=== PATIENT | female | born 1995 ===

== ENCOUNTER 2024-04-09 11:09 | Emergency (ER) | payer SELFPAY ==
[2024-04-09 11:33] VITALS: BP 130/78; PULSE 75; RESP 16; TEMP 36.9; O2SAT 98; BMI 38.2
[2024-04-09 12:25] LABS: Influenza A - CEPHEID Flu A NEGATIVE (NEGATIVE); Influenza B - CEPHEID Flu B NEGATIVE (NEGATIVE); Respiratory Syncytial Virus Negative (Negative)
[2024-04-09 12:39] LABS: COVID-19 CEPHEID 4-PLEX PCR Negative (Negative)
[2024-04-09 12:52] LABS: Bacteria Urine Many (>30); Culture Indicated Urine Specimen Cultured; RBC Urine None Seen (0-5/HPF); Squamous Epithelial Cell Urine 0-1 /HPF (0-5/HPF); Urine Volume 10mL (spun); WBC Urine 5-10/HPF (0-5/HPF)
--- NOTE | 2024-04-09 15:45 | ED.URI ---
HPI - URI/Sore Throat <Monica Pierre PA-C - Last Filed: 04/09/24 16:51> General Chief Complaint: Upper Respiratory Symptoms Stated Complaint: Fever, chills Time Seen by Provider: 04/09/24 15:44 Source: patient Mode of arrival: Ambulatory History of Present Illness HPI Narrative: Ms. Dexter is a pleasant 28-year-old female with a past medical history of PCOS who presents to the emergency department for fever, chills, nausea, fatigue, body aches, sore throat x 6 days. Patient is visiting here from [place]. States that she has had decreased appetite but still is able to eat and drink daily without vomiting. No abdominal pain, dysuria, diarrhea. She occasionally feels palpitations and chest tightness but no wheezing. No lower extremity swelling or pain. She does not smoke. Admits to left lower tooth pain. She has not taken any medications prior to arrival. She can not take pills. Related Data Previous Rx's Medication Instructions Recorded amoxicillin 400 mg/5 mL oral 1,000 mg (12.5 mL) PO TID 5 days 04/09/24 suspension #187.5 mL Allergies Allergy/AdvReac Type Severity Reaction Status Date / Time No Known Drug Allergies Allergy Verified 04/09/24 11:33 Review of Systems <Monica Pierre PA-C - Last Filed: 04/09/24 16:51> Review of Systems ROS Unobtainable: All systems reviewed & are unremarkable except as noted in HPI and below Patient History <Monica Pierre PA-C - Last Filed: 04/09/24 16:51> Social History Smoking Status: Never smoker Smoking Status: Never smoker Exam <Monica Pierre PA-C - Last Filed: 04/09/24 16:51> Narrative Exam Narrative: GENERAL: 28 year old patient appears stated age. Well-developed patient, in no acute distress. HEAD: Atraumatic. Normocephalic. EYES: Extraocular motions intact. No scleral icterus. No injection or drainage. ENT: TMs clear bilaterally. Nose without bleeding, purulent drainage. Absence of 1 of her left lower teeth some tenderness to palpation of the gingiva. No abscess. Posterior oropharyngeal erythema and 2+ bilateral tonsillar hypertrophy. Airway patent. NECK: Trachea midline. Cervical ROM intact. CARDIOVASCULAR: Regular rate and rhythm. RESPIRATORY: ?Nonlabored respirations. ?Speaking in clear, full sentences. ?Clear to auscultation. Breath sounds equal bilaterally. No wheezes, rales, or rhonchi. ? GASTROINTESTINAL: Abdomen soft, non-tender, nondistended. EXTREMITIES: No edema or joint tenderness. BACK: Nontender without deformity or crepitance. No flank tenderness. NEURO: AOx3. ?Clear speech. ?Moves all 4 extremities appropriately. SKIN: No rash or erythema of visible areas Initial Vital Signs Initial Vital Signs: Vital Signs Temperature 98.4 F 04/09/24 11:33 Pulse Rate 75 04/09/24 11:33 Respiratory Rate 16 04/09/24 11:33 Blood Pressure 130/78 04/09/24 11:33 Pulse Oximetry 98 04/09/24 11:33 Oxygen Delivery Method Room Air 04/09/24 11:33 <Pamela Ulrich MD - Last Filed: 04/10/24 08:33> Initial Vital Signs Initial Vital Signs: Vital Signs Temperature 98.4 F 04/09/24 11:33 Pulse Rate 75 04/09/24 11:33 Respiratory Rate 16 04/09/24 11:33 Blood Pressure 130/78 04/09/24 11:33 Pulse Oximetry 98 04/09/24 11:33 Oxygen Delivery Method Room Air 04/09/24 11:33 Course <Monica Pierre PA-C - Last Filed: 04/09/24 16:51> Orders Ordered: Discontinued Medications Acetaminophen (Acetaminophen Susp 650 Mg/20.3 Ml Udc) 650 mg PO NOW ONE Stop: 04/09/24 15:54 Last Admin: 04/09/24 16:03 Dose: 650 mg Documented By: NOEMY Ibuprofen (Ibuprofen Susp 100 Mg/5 Ml Udc) 400 mg PO NOW ONE Stop: 04/09/24 15:54 Last Admin: 04/09/24 16:04 Dose: 400 mg Documented By: NOEMY Ondansetron HCl (Ondansetron 4 Mg/2 Ml Inj) 4 mg IV NOW PRN PRN Reason: Nausea And Vomiting Ondansetron HCl (Ondansetron 4 Mg Odt) 4 mg SL NOW PRN PRN Reason: Nausea And Vomiting Last Admin: 04/09/24 16:03 Dose: 4 mg Documented By: NOEMY Vital Signs Vital signs: Vital Signs - 8 hr 04/09/24 11:33 Temperature 98.4 F Pulse Rate 75 Respiratory Rate 16 Blood Pressure 130/78 Pulse Oximetry 98 Oxygen Delivery Method Room Air <Pamela Ulrich MD - Last Filed: 04/10/24 08:33> Orders Ordered: Discontinued Medications Acetaminophen (Acetaminophen Susp 650 Mg/20.3 Ml Udc) 650 mg PO NOW ONE Stop: 04/09/24 15:54 Last Admin: 04/09/24 16:03 Dose: 650 mg Documented By: NOEMY Ibuprofen (Ibuprofen Susp 100 Mg/5 Ml Udc) 400 mg PO NOW ONE Stop: 04/09/24 15:54 Last Admin: 04/09/24 16:04 Dose: 400 mg Documented By: NOEMY Ondansetron HCl (Ondansetron 4 Mg/2 Ml Inj) 4 mg IV NOW PRN PRN Reason: Nausea And Vomiting Ondansetron HCl (Ondansetron 4 Mg Odt) 4 mg SL NOW PRN PRN Reason: Nausea And Vomiting Last Admin: 04/09/24 16:03 Dose: 4 mg Documented By: NOEMY Vital Signs Vital signs: Vital Signs - 8 hr 04/09/24 11:33 Temperature 98.4 F Pulse Rate 75 Respiratory Rate 16 Blood Pressure 130/78 Pulse Oximetry 98 Oxygen Delivery Method Room Air MDM - URI/Sore Throat <Monica Pierre PA-C - Last Filed: 04/09/24 16:51> Lab Data Labs: Lab Results 04/09/24 04/09/24 04/09/24 Range/Units 11:38 12:27 16:10 Urine RBC None seen (0-5/HPF) Urine WBC 5-10/hpf H (0-5/HPF) Ur Squamous Epith Cells 0-1 /hpf (0-5/HPF) Urine Bacteria Many (>30) H (None) Ur Culture Indicated? Specimen cultured Vol Urine Centrifuged 10ml (spun) SARS-CoV-2 (PCR) Negative (Negative) Influenza A (RT-PCR) Flu a negative (NEGATIVE) Influenza B (RT-PCR) Flu b negative (NEGATIVE) RSV (PCR) Negative (Negative) Group A Strep (PCR) Negative (Negative) Point of Care Testing Test Results Negative Urine Dip Bedside Urine Glucose Negative Bedside Urine Bilirubin - Negative Bedside Urine Ketone +/- 5 Urine Specific [place] 1.015 Bedside Urine Occult Blood - Negative Bedside Urine pH 6.0 Bedside Urine Protein - Negative Bedside Urine Urobilinogen - Negative Bedside Urine Nitrite - Negative Bedside Urine Leukocytes ++ 125 Esterase Imaging Data Chest x-ray: Radiologist's Impression: PROCEDURE: XR CHEST 2V INDICATIONS: fever, cough TECHNIQUE: 2 views of the chest were acquired. COMPARISON: None. FINDINGS: Surgical changes and devices: None. Lungs and pleura: Increased opacity in right perihilar region is seen concerning for developing right hilar infiltrate. Left lung is clear. No pleural effusions or pneumothorax. Mediastinum: Mediastinal contours are normal. Heart size is normal. Bones and chest wall: No suspicious bony abnormalities. Soft tissues appear unremarkable. IMPRESSION: Finding is concerning for developing right perihilar/infrahilar infiltrate. Clinical correlation and follow-up is recommended. No pleural effusion or pneumothorax. MDM Narrative Medical decision making narrative: 28-year-old female with a past medical history of PCOS who presents to the emergency department for fever, chills, nausea, fatigue, body aches, sore throat x 6 days. She is with her fiance who contributes to the history. Differential diagnosis includes but is not limited to pneumonia, tooth infection, strep pharyngitis, viral syndrome, bronchitis, UTI, etc. On exam the patient is in no acute distress, nontoxic-appearing, all vital signs within normal limits. She is posterior oropharyngeal erythema with tonsillar hypertrophy. Lungs clear to auscultation bilaterally and normal heart rate. We will obtain viral swab, chest x-ray, strep swab, UA. We will treat with liquid ibuprofen and Tylenol she declines pills. UA reveals 5-10 WBCs, many bacteria however patient having no dysuria or lower abdominal pain. After shared decision-making we will not treat as UTI at this time, urine culture sent. Patient understands she will be called if urine culture positive. Viral swab negative. Strep swab negative. Chest x-ray reveals developing right lung infiltrate. We will treat with amoxicillin 1 g p.o. 3 times daily for 5 days as this is a non complicated community-acquired pneumonia. Patient's antibiotics were sent to pharmacy of choice and liquid suspension form as she declines pills. Advised ibuprofen/Tylenol as well as needed. We discussed strict ER return precautions. Patient verbalized understanding of all information, vital signs stable, she is stable for discharge home. <Pamela Ulrich MD - Last Filed: 04/10/24 08:33> Lab Data Labs: Lab Results 04/09/24 04/09/24 04/09/24 Range/Units 11:38 12:27 16:10 Urine RBC None seen (0-5/HPF) Urine WBC 5-10/hpf H (0-5/HPF) Ur Squamous Epith Cells 0-1 /hpf (0-5/HPF) Urine Bacteria Many (>30) H (None) Ur Culture Indicated? Specimen cultured Vol Urine Centrifuged 10ml (spun) SARS-CoV-2 (PCR) Negative (Negative) Influenza A (RT-PCR) Flu a negative (NEGATIVE) Influenza B (RT-PCR) Flu b negative (NEGATIVE) RSV (PCR) Negative (Negative) Group A Strep (PCR) Negative (Negative) Point of Care Testing Test Results Negative Urine Dip Bedside Urine Glucose Negative Bedside Urine Bilirubin - Negative Bedside Urine Ketone +/- 5 Urine Specific [place] 1.015 Bedside Urine Occult Blood - Negative Bedside Urine pH 6.0 Bedside Urine Protein - Negative Bedside Urine Urobilinogen - Negative Bedside Urine Nitrite - Negative Bedside Urine Leukocytes ++ 125 Esterase Discharge Plan Departure Patient Disposition: Home Clinical Impression: Pneumonia Qualifiers: Pneumonia type: due to unspecified organism Laterality: right Lung location: middle lobe of lung Qualified Code(s): J18.9 - Pneumonia, unspecified organism Instructions: DI for Pneumonia -- Adult Activity Restrictions/Additional Instructions: Today your chest x-ray revealed a right-sided pneumonia which is a lung infection. We are treating you with amoxicillin 3 times a day x5 days. Your COVID/flu/RSV swab was negative, your strep swab was negative. Your urinalysis did reveal some bacteria so urine culture was sent and you will be called in 3 days if you need a different antibiotic. Please return to the ER if you develop any new or worsening symptoms, trouble breathing, any other concerns. Complete the full course of antibiotics even if your symptoms improve. Please take Ibuprofen (Motrin/Advil) or Acetaminophen (Tylenol) for pain. These are available over the counter. You may take Ibuprofen 600 mg every 8 hours with food for pain. You may also take Acetaminophen 650 mg every 4-6 hours for pain. Do not exceed 3000 mg of Tylenol a day as this can cause liver damage. Do not drink alcohol with either of these medications. Please follow up with your primary care doctor within the next 2-3 days for ER follow-up. (If you do not have a PCP you can call [phone]. ?to schedule an appointment with an [facility] Primary Care Provider) IF YOU DEVELOP ANY NEW OR WORSENING SYMPTOMS, RETURN TO THE ER! Please read the attached instructions, they highlight more specific treatments and interventions for you at home. Thank you for letting me participate in your care, Monica Pierre PA-C Prescriptions: New amoxicillin 400 mg/5 mL suspension for reconstitution 1,000 mg PO TID 5 Days Qty: 187.5 0RF Stand Alone Forms: Patient Portal/API/Survey ED Sign-out <Pamela Ulrich MD - Last Filed: 04/10/24 08:33> Cosign ED Attending Cosignature Attestation: I was immediately available in the department for consultation throughout this patient's visit. Pamela Ulrich MD
--- NOTE | 2024-04-09 15:53 | DI.RAD.S_ITS ---
PROCEDURE: XR CHEST 2V INDICATIONS: fever, cough TECHNIQUE: 2 views of the chest were acquired. COMPARISON: None. FINDINGS: Surgical changes and devices: None. Lungs and pleura: Increased opacity in right perihilar region is seen concerning for developing right hilar infiltrate. Left lung is clear. No pleural effusions or pneumothorax. Mediastinum: Mediastinal contours are normal. Heart size is normal. Bones and chest wall: No suspicious bony abnormalities. Soft tissues appear unremarkable. IMPRESSION: Finding is concerning for developing right perihilar/infrahilar infiltrate. Clinical correlation and follow-up is recommended. No pleural effusion or pneumothorax. Dictated by: Palmer Conte M.D. on 04/09/2024 at 16:07 Approved by: Palmer Conte M.D. on 04/09/2024 at 16:08
[2024-04-09] MEDS: ACETAMINOPHEN SUSP 650 MG/20.3 ML UDC PO (16:03)
[2024-04-09] MEDS: ONDANSETRON 4 MG ODT SL (16:03)
[2024-04-09] MEDS: IBUPROFEN SUSP 100 MG/5 ML UDC 400 MG PO (16:04)
[2024-04-09 16:34] LABS: Strep Grp A by PCR Rapid Negative (Negative)
== END 2024-04-09 17:03 | disposition home or self-care (01) ==
PROVIDERS: Emergency Medicine; Emergency Provider Physician Assistant
DX: J18.9 Pneumonia, unspecified organism (principal)
CPT/HCPCS: 0241U; 71046; 81003; 81015; 81025; 87086; 87651; 99283